=== PATIENT | male | born 1975 | race Two or more races ===

== ENCOUNTER 2022-05-01 16:26 | Emergency (ER) | payer MEDICARE, MEDICAID ==
[~2022-05-01] VITALS: Ht 210.8 cm; Wt 89.0 kg
[2022-05-01 16:32] VITALS: BP 120/79
[2022-05-01] MEDS ORDERED: PERM60CR4 TP (18:36)
[2022-05-01] MEDS ORDERED: CHLO473M2 MT (18:36)
== END 2022-05-01 18:58 | disposition home or self-care (01) ==
LOC: ER 16:26
DX: K05.10 Chronic gingivitis, plaque induced (principal); Z86.59 Personal history of other mental and behavioral disorders
CPT/HCPCS: 99282

== ENCOUNTER 2022-05-22 23:38 | Emergency (ER) | payer MEDICARE, MEDICAID ==
[~2022-05-22] VITALS: Ht 172.7 cm; Wt 68.0 kg
[~2022-05-22 23:38] MED LIST: CHLO473M2 MT; PERM60CR4 TP
[2022-05-23] MEDS ORDERED: ACETAMINOPHEN 325MG TABLET PO STA (05:24)
[2022-05-23 05:51] LABS: BASOPHILS % 0.2 % (0.0-2.0); EOSINOPHILS % 2.9 % (0.0-5.0); HEMATOCRIT. 31.6 % (42.0-52.0); HEMOGLOBIN. 10.7 g/dL (14.0-18.0); LYMPHOCYTES % 26.1 % (20.0-50.0); MEAN CORPUSCULAR VOLUME 94.5 fL (80.0-94.0); MEAN PLATELET VOLUME 6.8 fl (7.4-10.4); MONOCYTES % 6.6 % (2.0-8.0); NEUTROPHILS % 64.2 % (40.0-76.0); PLATELET 293 x1000/uL (130-400); RED BLOOD CELL COUNT 3.35 mill/uL (4.7-6.1); RED CELL DISTRIBUTION WIDTH 12.8 % (11.6-14.6)
[2022-05-23 05:59] LABS: CHLORIDE 107 mEq/L (98-107)
[2022-05-23 06:05] LABS: ETHANOL BLOOD < 10 mg/dL
[2022-05-23] MEDS ORDERED: TOPUD MT (06:55)
[2022-05-23] MEDS ORDERED: POTASSIUM CHLORIDE 20MEQ TABLET SR PO ONE (07:00)
[2022-05-23 07:46] LABS: *AMPHETAMINES SCREEN URINE PRESUMTIVE POSITIVE (NEGATIVE); *BARBITURATES SCREEN URINE NEGATIVE (NEGATIVE); *BENZODIAZEPINES SCREEN URINE NEGATIVE (NEGATIVE); *COCAINE SCREEN URINE NEGATIVE (NEGATIVE); CANNABINOID URINE SCREEN PRESUMTIVE POSITIVE (NEGATIVE); METHADONE URINE SCREEN NEGATIVE (NEGATIVE); OPIATES URINE SCREEN NEGATIVE (NEGATIVE); PHENCYCLIDINE URINE SCREEN NEGATIVE (NEGATIVE)
[2022-05-23 08:03] VITALS: BP 122/71
[2022-05-23 08:03] LABS: CLARITY URINE CLEAR (CLEAR); COLOR URINE YELLOW (YELLOW); KETONES URINE TRACE (NEGATIVE); LEUKOCYTE ESTERASE URINE NEGATIVE (NEGATIVE); NITRITE URINE NEGATIVE (NEGATIVE); OCCULT BLOOD URINE NEGATIVE (NEGATIVE); PH URINE 5.5 (4.5-8.0); PROTEIN URINE NEGATIVE (NEGATIVE)
== END 2022-05-23 08:18 | disposition home or self-care (01) ==
LOC: ER 23:38
DX: M79.672 Pain in left foot (principal); M79.671 Pain in right foot; R56.9 Unspecified convulsions; D57.1 Sickle-cell disease without crisis; F17.210 Nicotine dependence, cigarettes, uncomplicated
CPT/HCPCS: 36415; 80053; 80305; 80320; 81003; 85025; 85044; 99283; G0480